=== PATIENT | male | born 1985 | race Caucasian/White ===

== ENCOUNTER 2017-04-20 10:08 | Emergency (ER) | payer OTHER ==
[~2017-04-20] VITALS: Ht 175.3 cm; Wt 65.9 kg
[2017-04-20 10:18] VITALS: BP 103/67; PULSE 61; RESP 12; O2SAT 98
--- NOTE | 2017-04-20 10:55 | ED.REPORT ---
HPI-Extremity Problem Lower Date of Service Apr 20, 2017 ED Provider: Maureen Moya History of Present Illness: hit left knee with shuttlecock feather trimmer. happened at 850 this am. need a tetanus. primary care is no one. normally healthy. denies pain at rest 01/11 Nursing Notes Stated Complaint: TETANUS SHOT Chief Complaint: Extremity Trauma Nursing Notes Reviewed: Yes Allergies: Coded Allergies: No Known Allergies (Unverified , 04/20/17) General Time Seen by MD: 10:54 Chief Complaint Knee injury left Hx Obtained From: Patient Onset Occurred: 1 - 4 hours ago Symptom Duration: Since onset Caused by: Accidental Context: Occurred at: Workplace Past Medical History Past Medical History Denies: Asthma Past Surgical History denies Smoking History Never Smoker Social History Alcohol Use: Denies alcohol use Drug Use: Denies drug use Occupation lives with girlfriend, work at [employer] Status Independent Review of Systems Basic Review of Systems Eyes: Vision NL, No discharge : No dysuria, No frequency Psychiatric: Normal thought content Physical Exam Initial Vital Signs Vital Signs (First) Date Time Temp Pulse Resp B/P Pulse Ox O2 Delivery O2 Flow Rate FiO2 04/20/17 10:18 36.7 61 12 103/67 98 Room Air Initial VS: Reviewed, Vital signs normal General/Constitutional: Well-developed, Well-nourished Head / Eyes: Atraumatic, Normocephalic, PERRL ENT: Mucous membranes moist, Conjunctiva normal, No scleral icterus Neck: Supple, Non-tender, Full range of motion Respiratory: Breath sounds normal, Clear to auscultation, No respiratory distress Cardiovascular: Regular rate & rhythm, Heart sounds normal, Intact distal pulses Abdomen / GI: Soft, Non-tender, No guarding, No rebound, No distention Back: No CVA tenderness Lymphatic: No lymphadenopathy Upper Extremities: Vascular intact, Neuro intact, No swelling, No tenderness Skin: Warm, Dry, No cyanosis Neurologic: Alert, Oriented, Nonfocal Psychiatric: Mood/affect normal, Behavior normal, Normal thought content left knee has 2 -.6 cm superficial lacerations no gaping with flexion of the knee. No active bleeding cleaned by patient prior to arrival Ankle / Foot: Atraumatic, Inspection NL, Full range of motion, No swelling General/Constitutional: Awake, Alert, No acute distress, Well appearing, Well developed Respiratory / Chest: Atraumatic, Breath sounds NL, Breath sounds = bilat Cardiovascular: Heart rate NL, Regular rhythm, Heart sounds NL, No gallop Re-Eval/Medical Decision Med Decision/Clinical Course 32 year old male presents to the ER for update on tdap. Patient had a work injury which resulted in 2 small superficial laceration to this knee. No repair indicated. Updated on tdap. Patient has minimal pain. No sign of compartment syndrome or fracture Discharge & Departure Impression: Primary Impression: Laceration Disposition: Home Patient Instructions: Laceration Without Closure (ED) Additional Instructions: You have been updated on your Tdap today. You are cleared to return to work today. The lacerations are superficial, apply bacitracin and a bandaid to the site. Establish in primary care with [facility] Referrals: [facility] EDSupervising Provider for APC: Carlos Moy DO copies to: [facility] Maureen Moya Apr 20, 2017 10:55
[2017-04-20] MEDS ORDERED: TdaP Vaccine 0.5 mL Inj IM ONE (11:05)
[2017-04-20 11:25] VITALS: BP 103/67; PULSE 61; RESP 12; O2SAT 98
== END 2017-04-20 11:25 ==
LOC: SED 10:08
DX: S81.012A Laceration without foreign body, left knee, initial encounter (principal); W29.3XXA Contact with powered garden and outdoor hand tools and machinery, initial encounter; Y92.59 Other trade areas as the place of occurrence of the external cause; Y93.89 Activity, other specified; Y99.0 Civilian activity done for income or pay; Z23 Encounter for immunization